=== PATIENT | male | born 2005 | race Caucasian/White ===

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

== ENCOUNTER 2025-01-13 06:30 | Outpatient (RCR) | payer MEDICAID, SELFPAY | END 2025-02-11 23:59 | disposition home or self-care (01) | LOC: GPT 06:30 | DX: S76.311D Strain of muscle, fascia and tendon of the posterior muscle group at thigh level, right thigh, subsequent encounter (principal); X58.XXXD Exposure to other specified factors, subsequent encounter | CPT/HCPCS: 97110; 97112; 97140; 97530 ==

== ENCOUNTER 2025-03-13 15:05 | Outpatient (RCR) | payer MEDICAID, SELFPAY | END 2025-03-14 23:59 | disposition home or self-care (01) | LOC: GPT 15:05 | DX: S76.311D Strain of muscle, fascia and tendon of the posterior muscle group at thigh level, right thigh, subsequent encounter (principal); X58.XXXD Exposure to other specified factors, subsequent encounter | CPT/HCPCS: 97110; 97112; 97164; 97530 ==

== ENCOUNTER 2025-03-27 14:57 | Outpatient (RCR) | payer MEDICAID, SELFPAY | END 2025-03-28 07:03 | disposition home or self-care (01) | LOC: GPT 14:57 | DX: S76.311D Strain of muscle, fascia and tendon of the posterior muscle group at thigh level, right thigh, subsequent encounter (principal); X58.XXXD Exposure to other specified factors, subsequent encounter | CPT/HCPCS: 97110; 97530 ==